=== PATIENT | female | born 1980 | race African-American/Black ===

== ENCOUNTER → 2016-08-10 | Outpatient (CLI) | payer BC ==
--- OUTSIDE RECORDS SUMMARY | 2016-08-10 11:50 | XMS REPORT ---
Author Ailin Cuenca Organization [employer] Address Unknown Phone Unavailable Care Team Providers Care Visual Design Lead Name Role Phone Ailin Araiza CP Unavailable Allergies, Adverse Reactions, Alerts Substance Reaction Event Type N.K.D.A. Info Not Available Non Drug Allergy Problems Problem Type Condition Code Onset Dates Condition Status Assessment Encounter for occupational health assessment Z02.89 Active Medications No Known Medications Procedures Procedure Coding System Code Date COLOR VISION EXAMINATION CPT-4 97650 Mar 23, 2016 VISUAL ACUITY SCREEN CPT-4 83301 Mar 23, 2016 Physical Exam CPT-4 74514 Mar 23, 2016 OCM PFT CPT-4 66676 Mar 23, 2016 PURE TONE HEARING TEST, AIR CPT-4 41553 Mar 23, 2016 Vital Signs Date/Time: Mar 23, 2016 BMI 38.60 Index Weight 232 lb 0 oz lbs Height 5 ft 5 in in Blood Pressure Diastolic 88 mm Hg Blood Pressure Systolic 132 mm Hg Cardiac Monitoring Heart Rate 88 /min Temperature 98.2 F Oximetry 95 % Respiratory Rate 20 /min Results Name Result Date Reference Range Unit Abnormality Flag TEST-AUDIOGRAM TEST-OCM PFT TEST-COLOR VISION TEST-VISION SCREEN Summary Purpose [employer] Submission
--- NOTE | 2016-08-24 07:58 | ECHOCARDIOGRAPHY REPORT ---
PROCEDURE PHYSICIAN: NALLELY MAYA DATE OF PROCEDURE: 08/10/2016 TWO DIMENSIONAL ECHOCARDIOGRAM REPORT PRIMARY PHYSICIAN: OTHER PHYSICIAN: REFERRING PHYSICIAN: ORDERING PHYSICIAN: INDICATION FOR THE PROCEDURE: Chest pain. MEASUREMENTS DERIVED VALUES LV DIAMETER (LAX) NORMALS NORMALS Diastolic 4.8 (3.6-5.2) Eject. Fract. 50% (60%+/-6%) Systolic (2.3-3.9) Diastolic Vol. % Shortening (0.22-0.42) Systolic Vol. Aortic Root IVS THICKNESS Diastolic 0.9 (0.6-1.1) LVPW THICKNESS Diastolic 0.9 (0.6-1.1) LA DIAMETER Systolic 3.2 (2.1-3.7) FINDINGS: 1. Technical quality is good. 2. The left ventricle is normal in size with normal contractility. Systolic function appeared to be normal. Estimated ejection fraction 50%. 3. The left atrium is normal in size. No clot or thrombus were seen within the left atrium. 4. The right atrium and right ventricle are normal in size. No clot or thrombus were seen within the right side. 5. Mitral valve is normal in morphology with trace mitral regurgitation noted by color Doppler flow. No mitral valve prolapse. No mitral valve stenosis. Doppler across the mitral valve showed normal E:A ratio. 6. Aortic valve is trileaflet with normal opening and closing pattern. No significant aortic stenosis or regurgitation was seen. 7. Tricuspid valve is normal in morphology with mild tricuspid regurgitation noted by color Doppler flow. Insufficient Doppler signal to evaluate pulmonary artery pressure. 8. Pulmonic valve is functioning normally. 9. No pericardial effusion. IN CONCLUSION: 1. Normal left ventricular size and systolic function. Estimated ejection fraction 50%. 2. Trace mitral regurgitation. Mild tricuspid regurgitation. 3. Insufficient Doppler signal to evaluate pulmonary artery pressure. Job ID: [id number] Dictated Date: 08/10/2016 14:43:00 [employer] Director Date: 08/11/2016 09:57:19 / chayo
== END ==
LOC: CARD 11:46
PROVIDERS: ATTEND Internal Medicine Cardiovascular Disease
DX: I10 Essential (primary) hypertension (principal); R07.9 Chest pain, unspecified; R42 Dizziness and giddiness; R00.2 Palpitations; Z72.0 Tobacco use
CPT/HCPCS: 93225; 93226; 93306

== ENCOUNTER → 2016-08-11 | Outpatient (CLI) | payer BC ==
--- NOTE | 2016-09-01 07:27 | STRESS TEST ---
PROCEDURE PHYSICIAN: NALLELY MAYA DATE OF PROCEDURE: 08/11/2016 EXERCISE STRESS ECHOCARDIOGRAM REPORT: REFERRING PHYSICIAN: None. INDICATION: 1. Chest pain. 2. Hypertension. 3. Palpitation. BASELINE HEART RATE: 79 BASELINE BLOOD PRESSURE: 138/90 BASELINE EKG: Sinus rhythm with no ischemic changes. IN SUMMARY: The patient started exercising with the baseline heart rate, blood pressure and EKG mentioned above. She was able to exercise for a total of 6 minutes on standard [place] protocol, finishing stage II standard [place] protocol, a total 7 METs, achieving 89% of maximum expected heart rate. With peak exercise level, oxygen saturation was normal. Blood pressure was 172/99, heart rate was 162, which is 89% of maximum expected heart rate. No ischemic changes on EKG. No arrhythmia on EKG. During recovery, heart rate and blood pressure returned to baseline, EKG returned to baseline. Echocardiographic images were acquired and reviewed in the parasternal long axis parasternal short axis, apical 4 chamber and apical 2 chamber views. Review of the images showed normal left ventricular size with normal contractility. No ischemic changes. IN CONCLUSION: 1. Good exercise tolerance a total of 6 minutes on standard [place] protocol. Total 7 METs, achieving 89% of maximum expected heart rate. 2. Baseline hypertension with hypertensive response to exercise, returned to baseline during recovery. 3. No ischemia or arrhythmia on EKG. 4. Normal echocardiographic images at rest and with peak stress images with no ischemic changes. Job ID: [id number] Dictated Date: 08/11/2016 17:00:31 Insulation Inspector Date: 08/12/2016 07:44:24 / [email or web address]
== END ==
LOC: CARD 13:55 → EDUNIT# 14:00
PROVIDERS: ATTEND Internal Medicine Cardiovascular Disease
DX: R07.9 Chest pain, unspecified (principal); R00.2 Palpitations; R42 Dizziness and giddiness; I10 Essential (primary) hypertension; Z72.0 Tobacco use
CPT/HCPCS: 93351